=== PATIENT | male | born 1980 | race Caucasian/White ===

== ENCOUNTER 2019-06-08 13:41 | Inpatient (IN) | payer MEDICAID ==
[~2019-06-08] VITALS: Ht 180.3 cm; Wt 104.9 kg
--- NOTE | 2019-06-08 13:54 | NUR ---
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 C/P WAS NON-PROVOKED, "STRETCHING" IN QUALITY, DOES NOT RADIATE, 5/10 AT THE TIME OF ONSET, INTERMITTENT. PT ALSO REPORTS HE EXPERIENCED A PERIOD OF SOB WHEN THE C/P BEGAN. BREATHING EVEN AND UNLABORED AT THIS TIME. VS WNL. PT DENIES N/V/D, DIZZINESS, HEADACHE. EKG PERFORMED AND PROVIDED TO ER .
--- NOTE | 2019-06-08 13:58 | NUR ---
SKIN IS WARM AND DRY
--- NOTE | 2019-06-08 13:59 | NUR ---
SHAHEED CHARLES AT BEDSIDE FOR MSE.
[2019-06-08] MEDS ORDERED: ASPIRIN 325 MG TABLET PO ONE (14:15)
[2019-06-08] MEDS ORDERED: ASPIRIN 325 MG TABLET ONE (14:20)
[2019-06-08 14:27] LABS: EOSINOPHILS # (AUTO) 0.1 K/uL (0.0-0.7); EOSINOPHILS % (AUTO) 1.4 % (0.0-7.0); HEMATOCRIT 41.8 % (36.7-47.1); HEMOGLOBIN 14.1 g/dL (12.5-16.3); LYMPHOCYTES # (AUTO) 1.8 K/uL (20.0-40.0); LYMPHOCYTES % (AUTO) 35.9 % (20.5-51.5); MEAN CORPUSCULAR HEMOGLOBIN 31.2 uug (23.8-33.4); MEAN CORPUSCULAR HGB CONC 34 g/dL (32.5-36.3); MEAN CORPUSCULAR VOLUME 92.6 fL (73.0-96.2); MONOCYTES # (AUTO) 0.4 K/uL (2.0-10.0); MONOCYTES % (AUTO) 7.9 % (0.0-11.0); NEUTROPHILS # (AUTO) 2.7 K/uL (1.8-8.9); NEUTROPHILS % (AUTO) 53.8 % (38.5-71.5); PLATELET COUNT (AUTO) 240 K/uL (152-348); RED BLOOD CELL COUNT(AUTO) 4.51 MIL/uL (4.06-5.63); WHITE BLOOD COUNT (AUTO) 4.9 K/uL (3.6-10.2)
[2019-06-08 14:51] LABS: BILIRUBIN,DIRECT 0.1 mg/dL (0.0-0.2); BILIRUBIN,TOTAL 0.5 mg/dL (0.2-1.0); TOTAL PROTEIN, SERUM 7.9 g/dL (6.4-8.2)
--- NOTE | 2019-06-08 15:41 | NUR ---
ADMITTING REPORT GIVEN TO WOJCIECH MELCHOR.
--- NOTE | 2019-06-08 15:58 | NUR ---
Pt. admitted to TELE 316, under care of LOIDA CARDENAS, DRUM HANDLER. Belongs List completed
--- NOTE | 2019-06-08 16:30 | NUR ---
ADMITTED VIA [facility]. ORIENTED TO SURROUNDINGS. PLACED ON TELEMETRY. C/O CHEST PAIN RADIATING DOWN LEFT ARM WITH TINGLING SENSATION, NUMBNESS & BURNING. RUFUSING MED. FOR PAIN.
[2019-06-08 16:45] VITALS: BP 130/69
--- NOTE | 2019-06-08 17:15 | NUR ---
BROTHER AT BEDSIDE.
[2019-06-08] MEDS ORDERED: ZOLPIDEM 5 MG TABLET PO PRN (17:45)
[2019-06-08] MEDS ORDERED: ACETAMINOPHEN 325 MG TABLET PO PRN (17:45)
[2019-06-08] MEDS ORDERED: HYDROCODONE/APAP 5-325MG TABLET PO PRN (17:45)
[2019-06-08] MEDS ORDERED: ONDANSETRON 4 MG/2 ML VIAL IV PRN (17:45)
[2019-06-08] MEDS ORDERED: MAGNESIUM HYDROXIDE 30 ML LIQUID UDC PO PRN (17:45)
[2019-06-08] MEDS ORDERED: ENOXAPARIN SODIUM 40 MG/0.4 ML DISP.SYRIN SQ SCH ×2 (17:45→21:00)
[2019-06-08] MEDS ORDERED: Z GUARD REMEDY PASTE 57 GM TUBE TOP PRN (17:45)
[2019-06-08 20:00] VITALS: BP 132/70
[2019-06-08] MEDS ORDERED: ATORVASTATIN 20 MG TABLET PO SCH (21:00)
[2019-06-09] VITALS: BP 120/76
[2019-06-09 04:00] VITALS: BP 130/62
[2019-06-09 06:34] LABS: BASOPHILS % (AUTO) 0.9 % (0.0-2.0); EOSINOPHILS # (AUTO) 0.1 K/uL (0.0-0.7); EOSINOPHILS % (AUTO) 1.8 % (0.0-7.0); HEMATOCRIT 41.3 % (36.7-47.1); HEMOGLOBIN 13.7 g/dL (12.5-16.3); LYMPHOCYTES # (AUTO) 1.9 K/uL (20.0-40.0); LYMPHOCYTES % (AUTO) 38.1 % (20.5-51.5); MEAN CORPUSCULAR HEMOGLOBIN 30.9 uug (23.8-33.4); MEAN CORPUSCULAR HGB CONC 33 g/dL (32.5-36.3); MEAN CORPUSCULAR VOLUME 93.1 fL (73.0-96.2); MONOCYTES # (AUTO) 0.5 K/uL (2.0-10.0); MONOCYTES % (AUTO) 9.3 % (0.0-11.0); NEUTROPHILS # (AUTO) 2.5 K/uL (1.8-8.9); NEUTROPHILS % (AUTO) 49.9 % (38.5-71.5); PLATELET COUNT (AUTO) 219 K/uL (152-348); RED BLOOD CELL COUNT(AUTO) 4.43 MIL/uL (4.06-5.63); WHITE BLOOD COUNT (AUTO) 5.1 K/uL (3.6-10.2)
[2019-06-09 06:45] LABS: CREATININE 1.1 mg/dL (0.6-1.3); PHOSPHOROUS 3.3 mg/dL (2.5-4.9); POTASSIUM 4.4 mmol/L (3.5-5.1)
--- NOTE | 2019-06-09 07:30 | NUR ---
Patient calm and comfortable resting in bed with no sings of distress; patient will continue to be monitored.
[2019-06-09] MEDS ORDERED: ASPIRIN 81 MG TAB.CHEW PO SCH (09:00)
[2019-06-09 11:40] VITALS: BP 126/79
[2019-06-09] MEDS ORDERED: PROPRANOLOL HCL 10 MG TABLET PO PRN (12:15)
[2019-06-09] MEDS ORDERED: PROP10TA68 PO (13:02)
--- NOTE | 2019-06-09 14:05 | NUR ---
Patient discharged home in stable condition with baseline vital signs and no signs of distress;Patient educated on diagnosis and discharge instructions; patient verbalized understanding. Patient left via private car with .
== END 2019-06-09 14:05 | disposition home or self-care (01) | DRG 756 ==
LOC: ER 13:41 → TELE3 16:05
PROVIDERS: ADMIT Nurse Practitioner Acute Care; ATTEND Nurse Practitioner Acute Care
DX: F41.9 Anxiety disorder, unspecified (principal); D68.59 Other primary thrombophilia; E66.01 Morbid (severe) obesity due to excess calories; Z68.32 Body mass index [BMI] 32.0-32.9, adult; E05.90 Thyrotoxicosis, unspecified without thyrotoxic crisis or storm; E78.5 Hyperlipidemia, unspecified; G47.33 Obstructive sleep apnea (adult) (pediatric); I08.1 Rheumatic disorders of both mitral and tricuspid valves; R07.89 Other chest pain; Z82.49 Family history of ischemic heart disease and other diseases of the circulatory system; R00.2 Palpitations
CPT/HCPCS: 36415; 70030-TC; 71045; 83735; 84100; 84443; 85025; 85730; 93005; 93307; A4663; G0378; J1650